=== PATIENT | male | born 1950 | race Caucasian/White ===

== ENCOUNTER 2018-09-12 16:30 | Outpatient (RCR) | payer MEDICARE, SELFPAY ==
--- NOTE | 2018-08-13 09:09 | HP.PTEVAL_ITS ---
Patient's Visit Information BRISSA REYES is a 68 year old M referred to Physical Therapy by aFnta Alvarez DO with a diagnosis of RIGHT CALF STRAIN. Date of Evaluation: 08/13/18 Physical Therapist: Prashanth Galindo, PT, Cert MDT, OCS - Visit Plan Frequency: 2x /Week Duration: 4 Weeks Plan: MANUAL THERAPY STM/HAWK TO G-S,MODALITIES ECCENTRIC TRAINING,PROPRIOCEPTION - Subjective Findings: This 68 y/o male presents to physical therapy with right calf strain. Patient had symptom since MAY running ,then raced in JUN 2018 felt sharp pain. Stopped running intermittant ,tried to take time home. Been doing ex's on own. Patient has min pain during general activities just unable to run. Denies parathesia/tingling. patient stooped running. Patient symptoms affects QOL to return to running.Compression sleeeves. SOCAIL: . VOCATION: referee soccer ,volunter at [employer] - Pain Right Lower Extremity Pain Intensity (Out of 10): 1 Pain Intensity Range: 10 Comment: calf - Objective POSTURE: WFL. GAIT: normal anna. NEURO: denies parathesia. PALPATION: tender solues. AROM: DF 5 degrees ,inversio 40,eversion 10 degrees,plantarflexion 65 degrres. MMT: gastocsleus 4/5,perneous,posterior tibials,dorsiflexion 5/5. PRIPRIOCEPTION: intact - Goals Goal 1:: Independant with HEP Goal Time Frame: 4-6 Weeks Goal 2:: Decrease pain in right calf soleus to by 80 % or geatrer to improve function Goal Time Frame: 4-6 Weeks Goal 3:: Patient to have 5/5 strength G-S to return to running Goal Time Frame: 4-6 Weeks Goal 4:: Patient to improve LFES score by 5 -1o points to return to running Goal Time Frame: 4-6 Weeks Goal 5:: patient return to jogging without pain in calf Goal Time Frame: 4-6 Weeks - Rehabilitation Potential Physical Therapy Diagnosis: This patient has right calf strain fom running sleous stain with pain with palption affects ability to run thus benifit from skilled PT Rehabilitation Potential: Good - Anticipated Interventions Patient/Client Instruction: Educate patient on: Condition, Plan of Care For the Purpose of:: To decrease pain, To increase ROM, To improve muscle performance and motor function, To increase tolerance to activity/condition/position, To improve performance and independence with ADL's, To improve ability of physical actions for home/community/work/leisure, To improve health of tissue, To decrease soft tissue restriction, To increase flexibility/ROM, To reduce risk of recurrence Other: RUNNING Therapeutic Exercise to Include: Strength training, Flexibilty training, Active ROM Comment: ECCENTRICS For the Purpose of:: To decrease pain, To increase ROM, To improve nutrient delivery to tissue, To increase oxygenation perfusion, To improve health of tissue, To decrease soft tissue restriction Manual Therapy Techniques to Include: Soft tissue mobilization Comment: HAWL For the Purpose of:: To decrease pain, To increase ROM, To improve nutrient delivery to tissue, To increase oxygenation perfusion, To improve health of tissue, To decrease soft tissue restriction TENS: Yes IF ES: Yes Cryotherapy (ice pack, ice massage): Yes Thermo therapy (hot pack): Yes Ultrasound (thermal/non thermal): Yes For the Purpose of:: To decrease pain, To decrease swelling/inflammation, To increase ROM, To improve health of tissue, To decrease soft tissue restriction Thank you for the opportunity to evaluate your patient. For Medicare and Medicare HMO plans, please review the plan of care and approve it. It will need to be FAXED BACK to us at [phone] for Medicare purposes. For Medicare only, by signing this I certify the plan of care. Please let me know if there are questions or concerns regarding this plan of care. Physician Signature: Date:
--- NOTE | 2018-11-13 10:55 | HP.PTDCSUM ---
HP - PT D/C Summary It has been my pleasure to treat BRISSA REYES under orders from Fanta Alvarez DO, for the diagnosis of RIGHT CALF STRAIN for a total of 8 visit(s). Discharge Date: 09/12/18 Please see the following information for a summary of their discharge status. - Subjective Subjective: Joogging on treadmill. 11:00 MILE/HR. NO PAIN. GRADUALLY INCREASING RUNNING PROGRAM - Pain Right Lower Extremity Pain Intensity (Out of 10): 0 - Overall Improvement % Improvement: 90 - Objective Objective/Function: GAIT: NORMAL DAVID. PALPATION: unremarkable. MMT: 5/5 ankle. LIGHT JOGGING ON TREADMILL - Goals Goal 1:: Independant with HEP Goal Progress: Goal Met Goal 2:: Decrease pain in right calf soleus to by 80 % or geatrer to improve function Goal Progress: Goal Met Goal 3:: Patient to have 5/5 strength G-S to return to running Goal Progress: Goal Met Goal 4:: Patient to improve LFES score by 5 -1o points to return to running Goal 5:: patient return to jogging without pain in calf Goal Progress: Goal Met - Plan Plan: D/C TO HEP AND INTATIATED - D/C Information Discharge Comments: HEP If there are questions or concerns regarding this patient's physical therapy, please feel free to call me at [phone]. Thank you for the referral of this patient. Sincerely, Prashanth Galindo, PT, Cert MDT, OCS
== END 2018-09-12 19:00 | disposition home or self-care (01) ==
LOC: PT 16:30
PROVIDERS: Family Provider Internal Medicine; PCP Internal Medicine; Referring Provider Internal Medicine; Visit Provider Internal Medicine
DX: S86.111D Strain of other muscle(s) and tendon(s) of posterior muscle group at lower leg level, right leg, subsequent encounter (principal)
CPT/HCPCS: 97014; 97035; 97110; 97140; 97161; G0283

== ENCOUNTER → 2019-03-13 14:13 | Outpatient (CLI) | payer MEDICARE, SELFPAY ==
[2017-05-24 08:58] VITALS: BMI 20.1
--- NOTE | 2019-03-13 14:16 | RAD_ITS ---
STUDY: X-RAY - PELVIS AND RIGHT HIP REASON FOR EXAM: Male, 69 years old. Pain. TECHNIQUE: 3 views of the pelvis and hip. COMPARISON: None. FINDINGS: There is a non-specific bowel gas pattern. Normal visualized soft tissue structures. Normal bilateral iliac wings, sacroiliac joints and visualized sacrum. Normal bilateral superior and inferior pubic rami. Normal pubic symphysis. Normal bilateral ischial tuberosities. Normal visualized femoral head. Normal acetabulum. Normal hip joint. Soft tissue calcifications around the greater tuberosity are probably related to chronic bursitis and/or tendinitis. RAD/HIP, UNI W/ Pelvis 2-3 Views IMPRESSION: No acute fractures or dislocations. No evidence of significant osteoarthritis. Electronically Signed: Delio Callahan MD at 16:11 EDT , Service support ,
== END ==
PROVIDERS: Family Provider Internal Medicine; PCP Internal Medicine; Referring Provider Internal Medicine; Visit Provider Internal Medicine
DX: M25.551 Pain in right hip (principal); G89.29 Other chronic pain
CPT/HCPCS: 73502

== ENCOUNTER 2019-04-11 08:00 | Outpatient (RCR) | payer MEDICARE, SELFPAY ==
--- NOTE | 2019-03-18 16:49 | HP.PTEVAL ---
Patient's Visit Information BRISSA MCGRAW is a 69 year old M referred to Physical Therapy by Fanta Alvarez DO with a diagnosis of R Hip Pain. Date of Evaluation: 03/18/19 Physical Therapist: Elian Rodriguez PT, JULIANNA, SCS, CSCS - Visit Plan Frequency: 2x /Week Duration: 3 Weeks - Subjective Findings: Mrs Mcgraw is a pleasant 69 yo whom I'm familiar with as I have treated in his past. He states that approximately 6 months ago he began to experience diffuse right hip pain. It doesnt stop him from being activie ie. 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 - Pain Right Hip Pain Intensity (Out of 10): 3 Pain Intensity Range: 1, 6 - Objective Presents with a left leg discrepancy. Lower lumbar ROM reduced with forward flexion, rotation and extension. Negative slump and SLR test. DTR's WFL on MMT deficits notes for lower extremity. I was attempting to rule out a lower back component as he has had XRay previously that indicated DDD. B hip motion reduced with Internal Rotation. Negative hip scouring B. Slight pain with R>L hip extension and hip abduction. Tenderness to palpate just distal to posterior illiac crest mid substance gluteus medius. Slight tenderness at posterior greater tuberosity. Postiive matthew approximately 6 inches above table - Special Tests R Hip Scour: Negative R Hip MATTHEW - Intraarticular Pathology: Positive R Hip Impingement Provocation - Labrum: Negative - Goals Goal 1:: Return Demo HEP, understand condition and treatment Goal Time Frame: 1 Week Goal 2:: Use passive modalities to change contractile state of GM. Goal Time Frame: 2 Weeks Goal 3:: Initiate a Gluteal ROM strengthening program Goal Time Frame: 4-6 Weeks - Rehabilitation Potential Physical Therapy Diagnosis: R Gluteal medius strain tenopathy Rehabilitation Potential: Good - Anticipated Interventions Patient/Client Instruction: Educate patient on: Condition, Plan of Care For the Purpose of:: To decrease pain, To increase ROM, To improve ability to perform ADL's Therapeutic Exercise to Include: Strength training, Endurance training, Flexibilty training For the Purpose of:: To decrease pain, To increase ROM, To improve muscle performance and motor function Manual Therapy Techniques to Include: Trigger point massage, Massage, Passive ROM, Functional dry needling, Soft tissue mobilization For the Purpose of:: To decrease pain, To increase ROM Paraffin bath: Yes Pelvic traction supine: Yes For the Purpose of:: To decrease pain, To increase ROM, To improve ability to perform ADL's, To improve performance and independence with ADL's Thank you for the opportunity to evaluate your patient. For Medicare and Medicare HMO plans, please review the plan of care and approve it. It will need to be FAXED BACK to us at [phone] for Medicare purposes. For Medicare only, by signing this I certify the plan of care. Please let me know if there are questions or concerns regarding this plan of care. Physician Signature: Date:
--- NOTE | 2019-07-22 11:59 | HP.PTDCSUM_ITS ---
HP - PT D/C Summary It has been my pleasure to treat BRISSA REYES under orders from Fanta Alvarez DO, for the diagnosis of R Hip Pain for a total of 6 visit(s). Discharge Date: 05/12/19 Please see the following information for a summary of their discharge status. - Subjective Subjective: Harvey states he is doing fine now, he ran in dances with dirt two weekend ago and had been doing his hip strengthening exercises at [employer] - Pain Right Hip Pain Intensity (Out of 10): 1 - Overall Improvement % Improvement: 95 - Objective Objective/Function: Improving less pain, crepitius start to work on strengthening - Goals Goal 1:: Return Demo HEP, understand condition and treatment Goal Progress: Goal Met Goal 2:: Use passive modalities to change contractile state of GM. Goal Progress: Goal Met Goal 3:: Initiate a Gluteal ROM strengthening program Goal Progress: Goal Met - Plan Plan: continue with strengtheing - D/C Information Discharge Comments: Progressing well If there are questions or concerns regarding this patient's physical therapy, please feel free to call me at [phone]. Thank you for the referral of this patient. Sincerely, Elian Rodriguez, PT, JULIANNA, SCS, CSCS
== END 2019-04-11 19:00 | disposition home or self-care (01) ==
LOC: PT 08:00
PROVIDERS: Family Provider Internal Medicine; PCP Internal Medicine; Referring Provider Internal Medicine; Visit Provider Internal Medicine
DX: M25.551 Pain in right hip (principal); R26.89 Other abnormalities of gait and mobility; M21.70 Unequal limb length (acquired), unspecified site
CPT/HCPCS: 97035; 97110; 97140; 97161

== ENCOUNTER 2021-07-25 13:00 | Outpatient (RCR) | payer MEDICARE, SELFPAY ==
--- NOTE | 2021-06-17 11:44 | HP.OTEVAL_ITS ---
Patient's Visit Information BRISSA REYES is a 71 year old M, referred to Occupational Therapy by Kate Almazan NP-C, with a diagnosis of right wrist pain. Date of Evaluation: 06/17/21 Occupational Therapist: Vielka Anderson, OTR/Julian, CHT - Subjective This 71 year old male was seen for OT eval with dx of right wrist pain- pts stat es he was using a oneida bar to brake up some had salt in his water softener- pt states hurt following and this was about 6-weeks ago- pt states pain is with forearm supination at ulnar styloid- pt states limits functional ADls due to pain. - Pain right wrist 4 Pain Intensity Range: 6 - ROM Forearm: right supination to 40* prior to pain left WNL Wrist: right/left WNL ROM Comments: pt demo ROM WNL - Strength Pathology Laboratory Aides Teacher: right 60# left 80# Lateral Pinch: right 20# left 20# Tripod Pinch: right 26# left 26# - Sensation Sensation Comments: denies - Special Tests Benitez Scaphoid Shift: negative - Quick DASH-Disab of Arm,Shoulder& Hand Quick DASH Score: 36.3625 - Goals Goal:: Pt will demo a increase in right supervisor varnish strength by 15# to increase pts ind. with ADLs and IADLS by d/c Goal:: Pt demo right forearm supination to 70* with no pain by d.c Goal:: Pt will report pain no greater than 1/10 with use of right UE with ADls and IADls by d.c Goal:: pt will demo understanding of wrist ergo with IADL tasks to prevent tendon stress by d/c - Rehabilitation General Assessment: pt demo with painful ROM of right forearm with supination. pain does limit his ability to perform ADLs ind. pt would benefit from skilled OT services 1-2 x week for 6 weeks to return pt to PLOF. Today therapist ed. pt on wrist ergo. and initiation of isometrics pt demo understanding and agree to POC. Rehabilitation Potential: Good - Anticipated Interventions A/AAROM/PROM, Strengthening, Modalities, Orthoses, Joint Protection/Energy Conservation, Ergonomic Education, ADL Training, Education re assistive Equipment, Education re Diagnosis, Home Program - Visit Plan Frequency: 1-2x /Week Duration: 6 Weeks TEXT: Thank you for the opportunity to evaluate your patient. For Medicare and Medicare HMO plans, please review the plan of care and approve it. It will need to be FAXED BACK to us at [phone] for Medicare purposes. Please let me know if there are questions or concerns regarding this plan of care. Physician Signature: Date:
== END 2021-07-25 19:00 | disposition home or self-care (01) ==
LOC: OT 13:00
PROVIDERS: PCP Internal Medicine; Referring Provider Nurse Practitioner; Visit Provider Nurse Practitioner
DX: M25.531 Pain in right wrist (principal)
CPT/HCPCS: 97035; 97110; 97166; 97530

== ENCOUNTER 2022-02-20 08:00 | Outpatient (RCR) | payer MEDICARE, SELFPAY ==
--- NOTE | 2022-01-31 11:49 | HP.PTEVAL_ITS ---
Patient's Visit Information BRISSA REYES is a 72 year old M referred to Physical Therapy by Dr. Fanta Alvarez DO with a diagnosis of R hip pain. Date of Evaluation: 01/31/22 Physical Therapist: Ernst Walters DPT, OCS, CSCS - Visit Plan Frequency: 3x /Week Duration: 2-4 Weeks Plan: 3x/week for 2-4 weeks for. 1. US to R glut near iliac crest posterior non thermal. 2. DTR adn sTM to same. 3. stretch pirifromis, glut, ITB and posterior R hip. 4. resume hip SLR, gym strength when painfree. May use TENs if needed. - Subjective R hip pain. last day at [employer] after 250 miles recumbent bike and it was fine for first 6 days, This past Sunday Got off bike last day and could hardly walk. Has had this pain in the past and was doing exercises until GOBa started adn kept it in check. Pain is lateral posterior R hip and is tender to the touch. X ray was OK. Ice and ibuprofen had helped . This pain was not present prior to last weekend. Exercises for hip include SLR abd with 7#, SLR, 7#, hip abd and add in gym, hip abd in gym and rolling foam the side of the hip. Has been running and cycling without pain prior to this. Sleep is OK. - Pain R hip Pain Intensity (Out of 10): 10 Pain Intensity Range: 0, 3 - Objective R post hip upper glut max and near iliac crest max tender. Walks normal today and with 2/10 pain. Trasnfers I and normal except some evidence of rolling discomfort with bridging R. AROM B hips and knees WFL and symmetrical. Strength hips 4- R and 4 L but no pain in flexion, abd or ext SLR. knees and ankles aROM and strength symmetrical. reflexes 2/3 patella and achilles. Sensation LE WNL to gross light touch. LB AROM min limited in all directions and painfree. - Balance/Special Test Scores Lower Extremity Functional Score: 39 - Goals Goal 1:: 90% improvement in overall pain level to 1/10 at worst Goal Time Frame: 2-4 Weeks Goal 2:: Resume jogging and hip ex program without pain Goal Time Frame: 2-4 Weeks Goal 3:: I management of condition Goal Time Frame: 2-4 Weeks Goal 4:: 59 LEFS score Goal Time Frame: 2-4 Weeks - Rehabilitation Potential Physical Therapy Diagnosis: R hip pain likely soft tissue/glut inflammation Rehabilitation Potential: Fair - Anticipated Interventions Patient/Client Instruction: Educate patient on: Condition, Plan of Care For the Purpose of:: To decrease pain, To increase tolerance to activity/condition/position, To improve gait and locomotor functions Therapeutic Exercise to Include: Strength training, Flexibilty training, Passive ROM, Active ROM For the Purpose of:: To decrease pain, To increase tolerance to activity/condition/position Manual Therapy Techniques to Include: Soft tissue mobilization For the Purpose of:: To decrease pain TENS: Yes Cryotherapy (ice pack, ice massage): Yes Ultrasound (thermal/non thermal): Yes - nonthermal For the Purpose of:: To decrease pain, To decrease swelling/inflammation Thank you for the opportunity to evaluate your patient. For Medicare and Medicare HMO plans, please review the plan of care and approve it. It will need to be FAXED BACK to us at [phone] for Medicare purposes. For Medicare only, by signing this I certify the plan of care. Please let me know if there are questions or concerns regarding this plan of care. Physician Signature: Date:
--- NOTE | 2022-02-20 08:31 | HP.PTDCSUM ---
It has been my pleasure to treat BRISSA REYES referred by Dr. Fanta Alvarez DO, with the diagnosis of R hip pain for a total of 6 visit(s). Discharge Date: 02/20/22 Please see the following information for a summary of their discharge status. Subjective: Getting better. Was doing great. had no pain at all for a while. Started to run 30 minutes or so a day and tweaked it a little bit yesterday. Pt feels he wishes to continue via HEP. R hip Pain Intensity (Out of 10): 0 % Improvement: 90 Objective/Function: Tenderness persists post iliac crest but is B R >L. Flexibility similar to first day, pain much better. Overall doing well and is running and training for mountain climb. Goal 1:: 90% improvement in overall pain level to 1/10 at worst Goal Progress: Goal Met Goal 2:: Resume jogging and hip ex program without pain Goal Progress: Goal Met Goal 3:: I management of condition Goal Progress: Goal Met Goal 4:: 59 LEFS score Goal Progress: Goal Met Plan: d/c If there are questions or concerns regarding this patient's physical therapy, please feel free to call me at [phone]. Thank you for the referral of this patient. Sincerely, Ernst Walters, DPT, OCS, CSCS Balance/Gait/Functional tests - Balance/Special Test Scores Lower Extremity Functional Score: 68
== END 2022-02-20 19:00 | disposition home or self-care (01) ==
LOC: PT 08:00
PROVIDERS: PCP Internal Medicine; Referring Provider Internal Medicine; Visit Provider Internal Medicine
DX: M25.551 Pain in right hip (principal); G89.29 Other chronic pain
CPT/HCPCS: 97035; 97110; 97161; 97164

== ENCOUNTER → 2024-06-23 | Outpatient (CLI) | payer MEDICARE, SELFPAY | END | disposition home or self-care (01) | PROVIDERS: PCP Nurse Practitioner Family; Referring Provider Otolaryngology; Visit Provider Otolaryngology | DX: R05.9 Cough, unspecified (principal) | CPT/HCPCS: 87070; 87205 ==

== ENCOUNTER → 2025-06-08 | Outpatient (CLI) | payer MEDICARE, SELFPAY ==
[2025-06-08 17:10] LABS: Hematocrit 48.4 % (40-54); Hemoglobin 16.6 g/dL (13.0-16.5); Immature Granulocytes Count 0.020 X10^3/uL (0.0-0.0); Mean Corp Hgb Conc 34.3 g/dL (32-36); Mean Corpuscular Volume 90.0 fL (80-94); NRBC Flagged by Analyzer 0 % (0-5); POSITIVE COUNT YES; RBC Distribution Width CV 13.0 % (11.6-14.6); RBC Distribution Width SD 42.6 fl (35.1-43.9); Red Blood Count 5.38 M/mm3 (4.6-6.2); White Blood Count 5.6 K/mm3 (4.4-11.0)
[2025-06-08 17:47] LABS: AST(SGOT) 26 U/L (<=37); Alanine Aminotransfer ALT/SGPT 28 U/L (<=46); Albumin, Serum 4.4 g/dL (3.4-4.8); Alkaline Phosphatase 82 U/L (40-129); Anion Gap 8 (5-15); BUN 25 mg/dL (4-19); BUN/Creat Ratio 27.9 RATIO (10-20); Calcium,Total 9.9 mg/dL (7.6-11.0); Carbon Dioxide 28.0 mmol/L (21.0-32.0); Chloride 105 mmol/L (98-108); Cholesterol 215 mg/dL (<=200); Globulin 2.0 g/dL (2.2-4.2); Glucose 80 mg/dL (70-99); Low Density Lipoprotein Calc. 101 mg/dL; PSA,Total - Annual Screen 2.62 ng/mL (0.02-4.00); Potassium 5.0 mmol/L (3.3-5.1); Triglycerides 166 mg/dL; Very Low Density Lipoprotein 33 mg/dL (5-40); Vitamin B12 1170 pg/mL (180-914); Vitamin D,25 Hydroxy 28.7 ng/mL (30-100); cholesterol:hdl ratio screen 2.51
[2025-06-08 18:17] LABS: FOLATES,SERUM (FOLIC ACID) > 40.00 ng/mL (4.60-34.80)
[2025-06-08 21:49] LABS: Differential Comment SCANNED
== END | disposition home or self-care (01) ==
LOC: VSLAB 11:42
PROVIDERS: PCP Nurse Practitioner Family; Visit Provider Nurse Practitioner Family
DX: D58.2 Other hemoglobinopathies (principal); E78.00 Pure hypercholesterolemia, unspecified; F41.9 Anxiety disorder, unspecified; R79.89 Other specified abnormal findings of blood chemistry; Z12.5 Encounter for screening for malignant neoplasm of prostate; Z13.21 Encounter for screening for nutritional disorder
CPT/HCPCS: 36415; 80053; 80061; 82306; 82607; 82746; 84153; 84443; 85025; G0103